=== PATIENT | female | born 1940 | race African-American/Black ===

== ENCOUNTER 2025-09-27 14:54 | Inpatient (IN) | payer OTHER ==
[~2025-09-27] VITALS: Ht 160 cm; Wt 59.8 kg
[2025-09-27] MEDS: VANCOMYCIN 1GM/250ML IV ONE (00:30)
[2025-09-27] MEDS: HEPARIN SODIUM (PORCINE) 5000 UNITS/ML 1ML VIAL SC SCH (00:30)
[2025-09-27] MEDS: CEFEPIME 1GM/50ML 50 ML IV STA (02:30)
[2025-09-27 15:30] VITALS: PULSE 118; RESP 16; O2SAT 95
--- NOTE | 2025-09-27 16:11 | ED.PDOC ---
History of Present Illness HPI Comments 85-year-old female presents via EMS after being found down for multiple days at home. Family was concerned they had heard from patient and called to do a wellness check. found patient unconscious on the ground next to her . Patient is altered and can not verbalize any other complaints Chief Complaint: Failure to Thrive Time Seen by MD: 15:50 Primary Care Provider: heritage Allergies: Coded Allergies: Codeine (Verified Allergy, Unknown, 10/30/14) Penicillins (Verified Allergy, Unknown, 09/29/25) Mode of Arrival: EMS Past Medical History PAST MEDICAL HISTORY: HTN Surgical History: Appendectomy, , Hysterectomy BUSINESS CENTER MANAGER History: No Pertinent BUSINESS CENTER MANAGER History Family History Family History: No family hx of Cancer, No family hx of DM, No family hx of HTN Family History (Other): thyroid Social History Smoker: Non-Smoker Alcohol: Denies ETOH Use Drugs: Denies Drug Use Lives In: Home Physical Exam General Appearance: Moderate Distress HEENT: Pharynx Normal Neck: Normal Inspection Respiratory: No Respiratory Distress Cardiovascular: No Edema Breast Exam: Deferred Gastrointestinal: No Organomegaly Genitalia: Deferred Pelvic: Deferred Rectal: Deferred Extremities: No pedal edema Neurologic: Disoriented, No Motor Deficits Cerebellar Function: NOT DONE Reflexes: NOT DONE Skin: Normal Color Lymphatic: NOT DONE Was a procedure done? 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: Attending Physician Indication: Hypotension, Inability to obtain IV Room prepared for procedure: Yes Health Promotion Coordinator performed hand hygien: Yes Maximal sterile barrier precau: Mask/Eye shield, Sterile gown, Cap, Sterlie gloves, Large sterlie drape Skin Preparation: Chlorhexidine gluconate, Providine iodine, Alcohol Skin preparation completely dr: Yes Insertion site: Left, Internal jugular Central line catheter type: [id number] dialysis Number of lumens: 3 Central line exchanged over a: Yes Antiseptic ointment applied to: Yes Post Assessment: Chest X-Ray, Proper placement Informed consent obtained: Yes Risks/benefits/alt described: Yes Differential Dx Considerations may include: ACS, CVA, viral syndrome, intracranial abnormality, dehydration, rhabdomyolysis X-Ray, Labs, Meds, VS Vital Signs Date Time Temp Pulse Resp B/P (MAP) Pulse Ox O2 Delivery O2 Flow Rate FiO2 09/27/25 21:00 90 16 156/95 (115) 100 09/27/25 20:24 44 09/27/25 20:00 92 17 150/93 (112) 100 09/27/25 19:00 89 12 171/81 09/27/25 18:31 77 13 147/86 09/27/25 18:00 128 21 147/86 (106) 100 09/27/25 17:10 111 12 157/103 (121) 99 09/27/25 16:00 97.8 114 18 154/109 (124) 91 97.8 09/27/25 15:30 118 16 95 Room Air* 0 21 09/27/25 15:12 115 09/27/25 15:06 98.0 135 24 161/47 94 98.0 Lab Test 09/27/25 21:25 09/27/25 19:45 09/27/25 18:41 09/27/25 17:29 Range/Units Ammonia < 10 L 11-32 umol/L Creatine Kinase 114 34-145 U/L Magnesium Level 2.5 1.6-2.6 mg/dL Troponin I High Sensitivity 611 *H 702 *H </=34 ng/L Lactic Acid Level 2.4 *H 0.4-2.0 mmol/L Thyroid Stimulating Hormone (TSH) 0.51 L 0.55-4.78 uIU/mL Test 09/27/25 17:10 09/27/25 16:31 09/27/25 15:39 Range/Units Urine Color Light-orange Yellow Urine Clarity Turbid H Clear Urine pH 5.5 5.0-9.0 Urine Specific [place] 1.022 1.001-1.035 Urine Protein 1+ H Negative Urine Ketones Trace Negative Urine Blood 3+ H Negative /uL Urine Nitrite Negative Negative Urine Bilirubin Negative Negative Urine Urobilinogen 2 H Negative mg/dL Urine Leukocyte Esterase 2+ Negative /uL Urine RBC 94 0 - 4 /hpf Urine Microscopic WBC 43 H 0-5 /HPF Urine Squamous Epithelial Cells Mod <5 /hpf Urine Amorphous Crystals Few None Seen /hpf Urine Bacteria Few H None Seen /hpf Urine Cellular Casts Few 0 /hpf Urine Hyaline Casts Many 0 - 2 /lpf Urine Granular Casts Few 0 /lpf Urine Mucus Few None Seen Urine Creatinine 267.15 H 30.0-125.0 mg/dL Urine Microalbumin 118.0 H <30.0 mg/L Urine Protein/Creatinine Ratio 0.46 Urine Sodium < 10 L 40-220 mmol/L Urine Glucose Normal Normal mg/dL Urine Total Protein 122.3 H 1-14 mg/dL Urine Opiates Screen Neg NEGATIVE Urine Fentanyl Screen Neg NEGATIVE Urine Barbiturates Screen Neg NEGATIVE Urine Phencyclidine Screen Neg NEGATIVE Urine Amphetamines Screen Neg NEGATIVE Urine Benzodiazepines Screen Neg NEGATIVE Urine Cocaine Screen Neg NEGATIVE Urine Cannabinoids Screen Pos NEGATIVE White Blood Count 9.2 4.4-10.8 10^3/uL Red Blood Count 5.31 H 4.0-5.20 10^6/uL Hemoglobin 15.7 12.2-16.2 g/dL Hematocrit 46.6 H 36.0-46.0 % Mean Corpuscular Volume 87.8 80.0-100.0 fL Mean Corpuscular Hemoglobin 29.6 28.0-32.0 pg Mean Corpuscular Hemoglobin Concent 33.7 32.0-36.0 g/dL Red Cell Distribution Width 17.9 H 11.8-14.3 % Platelet Count 326 140-450 10^3/uL Mean Platelet Volume 8.9 6.9-10.8 fL Neutrophils (%) (Auto) 89.5 H 37.0-80.0 % Lymphocytes (%) (Auto) 6.9 L 10.0-50.0 % Monocytes (%) (Auto) 3.5 0.0-12.0 % Eosinophils (%) (Auto) 0.0 0.0-7.0 % Basophils (%) (Auto) 0.1 0.0-2.0 % Neutrophils # (Auto) 8.2 1.6-8.6 10 ^3/uL Lymphocytes # (Auto) 0.6 0.4-5.4 10 ^3/uL Monocytes # (Auto) 0.3 0-1.3 10 ^3/uL Eosinophils # (Auto) 0 0-0.8 10 ^3/uL Basophils # (Auto) 0 0-0.2 10 ^3/uL Nucleated Red Blood Cells 0.1 % Sodium Level 143 136-145 mmol/L Potassium Level 2.7 L 3.5-5.1 mmol/L Chloride Level 97 L 98-107 mmol/L Carbon Dioxide Level 28 20-31 mmol/L Anion Gap 18 H 5-15 Blood Urea Nitrogen 45 H 9-23 mg/dL Creatinine 2.16 H 0.550-1.02 mg/dL Glomerular Filtration Rate Calc 22 >90 mL/min BUN/Creatinine Ratio 20.8 H 10.0-20.0 Serum Glucose 109 H 74-106 mg/dL Lactic Acid Level 2.3 *H 0.4-2.0 mmol/L Calcium Level 11.1 H 8.7-10.4 mg/dL Total Bilirubin 1.4 H 0.2-1.0 mg/dL Aspartate Amino Transferase (AST) 47 H 13-40 U/L Alanine Aminotransferase (ALT) 23 7-40 U/L Alkaline Phosphatase 114 46-116 U/L Creatine Kinase 147 H 34-145 U/L Troponin I High Sensitivity 708 *H </=34 ng/L B-Type Natriuretic Peptide 62.41 0-100 pg/mL Total Protein 8.7 H 5.7-8.2 g/dL Albumin 4.8 3.2-4.8 g/dL POC Glucose 130 H 70-106 mg/dl Microbiology Date/Time Source Procedure Growth Status 09/27/25 17:29 Blood Blood Culture - Preliminary NO GROWTH AFTER 72 HOURS OF INCUBATION. Resulted 09/27/25 17:10 Voided Urine Urine Culture - Final Complete 09/27/25 16:31 Blood Blood Culture - Preliminary NO GROWTH AFTER 72 HOURS OF INCUBATION. Resulted Time of 1ST Reevaluation: 18:30 (Sign out received from Dr. Adhikari. Pending admission) Reevaluation 1ST: Improved Patient Education/Counseling: Pt Unresponsive Family Education/Counseling: No Family Present SEPSIS Sepsis Screen Date sepsis recognized/suspect: Sep 27, 2025 Time Sepsis recognized/suspect: 1506 Recent Procedure: No On Antibiotic Therapy: No Respiratory Rate >20: Yes Heart Rate >90: Yes Temp<36 C (96.8 F) or >38.3 C: No SBP <90 or MAP <65 mmHG: No New Acute Mental Status Change: No Is the patient on CPAP, BIPAP,: No Physician Orders Electrocardigram (09/27/25 15:32) Blood Culture (09/27/25 16:09) Chest Portable (09/27/25 16:09) Head Without Contrast (09/27/25 16:09) Accucheck (09/27/25 18:00) Notify Md If Map <65 Or Bp<90 (09/27/25 18:00) If Map<65 Start Vasopressor (09/27/25 18:00) Sepsis Reassesment After Fluid (09/27/25 19:00) Ct Ab Pel Wo Con-No Oral Or Iv (09/27/25 17:59) Strict I & O QSHIFT (09/27/25 21:05) Ondansetron Hcl (Zofran) (09/27/25 21:15) Fall Risk Precautions In Place QSHIFT (09/27/25 21:05) Heparin Sodium (Porcine) (09/27/25 22:00) Docusate Sodium Capsule (Colace Capsule) (09/27/25 21:15) Albuterol Medneb (Ventolin Medneb) (09/27/25 21:15) Strict Aspiration Precautions (09/27/25 21:29) *Consult Dr.Mukeshchandra Carballo (09/27/25 21:29) Aspirin Enteric Coated Tablet (Ecotrin E (09/28/25 10:00) Atorvastatin (Lipitor) (09/27/25 22:00) Pt Request For Service (09/27/25 21:29) Vital Signs Date Time Temp Pulse Resp B/P (MAP) Pulse Ox O2 Delivery O2 Flow Rate FiO2 09/27/25 21:00 90 16 156/95 (115) 100 09/27/25 20:24 44 09/27/25 20:00 92 17 150/93 (112) 100 09/27/25 19:00 89 12 171/81 09/27/25 18:31 77 13 147/86 09/27/25 18:00 128 21 147/86 (106) 100 09/27/25 17:10 111 12 157/103 (121) 99 09/27/25 16:00 97.8 114 18 154/109 (124) 91 97.8 09/27/25 15:30 118 16 95 Room Air* 0 21 09/27/25 15:12 115 09/27/25 15:06 98.0 135 24 161/47 94 98.0 Laboratory Tests Test 09/27/25 16:31 09/27/25 18:41 Lactic Acid Level 2.3 mmol/L (0.4-2.0) *H 2.4 mmol/L (0.4-2.0) *H White Blood Count 9.2 10^3/uL (4.4-10.8) Departure 1 Departure Time of Disposition: 18:30 Impression: Primary Impression: MONIK (acute kidney injury) Additional Impressions: Metabolic encephalopathy Elevated troponin Hypokalemia UTI (urinary tract infection) Disposition: ADMITTED INPATIENT Condition: Guarded Critical Care Note Critical Care Time?: Yes Critical care comment: Altered mental Authorized and Performed by: Gracie Adhikari MD Total critical care time: Approximately 124 minutes Due to a high probability of clinically significant, life threatening deterioration, the patient required my highest level of preparedness to intervene emergently and I personally spent this critical care time directly and personally managing the patient. This critical care time included obtaining a history; examining the patient; pulse oximetry; ordering and review of studies; arranging urgent treatment with development of a management plan; evaluation of patient's response to treatment; frequent reassessment; and, discussions with other providers. This critical care time was performed to assess and manage the high probability of imminent, life-threatening deterioration that could result in multi-organ failure. It was exclusive of separately billable procedures and treating other patients and teaching time. Please see my other sections and the rest of the note for further information on patient assessment and treatment. Stability Stability form required: No I personally scribed for GRACIE ADHIKARI MD ([email or web address]) on 09/27/25 at 23:39. Electronically submitted by Tiera Posey ([email or web address]). GRACIE ADHIKARI MD Sep 27, 2025 16:11 JAYNA JESUS MD Sep 28, 2025 00:49
[2025-09-27 16:51] LABS: Hematocrit 46.6 % (36.0-46.0); Hemoglobin 15.7 g/dL (12.2-16.2); Mean Corpuscular Hemoglobin 29.6 pg (28.0-32.0); Mean Corpuscular Volume 87.8 fL (80.0-100.0); Nucleated Red Blood Cells % 0.1 %
[2025-09-27 17:06] LABS: Albumin 4.8 g/dL (3.2-4.8); Alkaline Phosphatase 114 U/L (46-116); Anion Gap 18 (5-15); BUN/Creatinine Ratio 20.8 (10.0-20.0); Blood Urea Nitrogen 45 mg/dL (9-23); Calcium 11.1 mg/dL (8.7-10.4); Carbon Dioxide 28 mmol/L (20-31); Chloride 97 mmol/L (98-107); Creatine Kinase IFCC 147 U/L (34-145); Glucose 109 mg/dL (74-106); Potassium 2.7 mmol/L (3.5-5.1); Sodium 143 mmol/L (136-145); Total Protein 8.7 g/dL (5.7-8.2)
[2025-09-27 17:07] LABS: Bilirubin, Total 1.4 mg/dL (0.2-1.0)
[2025-09-27 17:09] LABS: Lactic Acid w/Reflex 2.3 mmol/L (0.4-2.0)
[2025-09-27 17:23] LABS: Urine Amorphous Crystal FEW /hpf (None Seen); Urine Protein, UAD 1+ (Negative)
--- NOTE | 2025-09-27 17:42 | ECG ---
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
[2025-09-27] MEDS: SODIUM CHLORIDE 0.9% 1,000 ML IV ONE ×3 (17:45→23:35)
[2025-09-27 17:46] LABS: Alanine Aminotransferase 23 U/L (7-40)
[2025-09-27] MEDS: ONDANSETRON HCL 4 MG/2 ML VIAL IV ONE (18:30)
[2025-09-27] MEDS: MORPHINE SULFATE 4 MG/ML SYR/VIAL IV ONE (18:31)
--- NOTE | 2025-09-27 18:46 | DVH ---
EXAM: CT HEAD WITHOUT CONTRAST INDICATION: found down TECHNIQUE: CT images of the head were obtained without administration of IV contrast. CT scans at this facility use dose modulation, iterative reconstruction, and/or weight based dosing when appropriate to reduce radiation dose to as low as reasonably achievable. COMPARISON: None FINDINGS: PARENCHYMA: No acute hemorrhage. There is no mass effect, midline shift, or herniation. There is preservation of the garcia white differentiation. Severe scattered hypoattenuation along the periventricular, centrum semiovale, and deep white matter tracts, which are nonspecific however statistically most likely represent chronic microvascular ischemic change. VENTRICLES: No hydrocephalus. EXTRA-AXIAL SPACES: No extra-axial fluid collections. OTHER: The bony structures are intact. Visualized portions of the paranasal sinuses and mastoid air cells are clear. IMPRESSION: 1. No CT evidence of an acute intracranial abnormality.
--- NOTE | 2025-09-27 18:50 | DVH ---
Indication: abd pain Technique: CT axial images of the abdomen and pelvis are obtained without contrast. Coronal and sagittal reformats were obtained. Radiation Dose Information: CTDI volume is 5.4 mGy. Dose-length product is 1715 mGy*cm Comparison: None FINDINGS: There is limited interpretation of the abdomen and pelvis without administration of intravenous contrast. Examination degraded by motion. Lung bases demonstrate no pleural effusion. Coronary artery calcification disease. Aortic atherosclerotic disease. Adrenal glands, spleen, pancreas, liver unremarkable in shape. Gallbladder not well visualized/contracted. Kidneys demonstratem no hydronephrosis. Nonobstructing calculi up to 8 mm. Nonobstructing left renal calculi up to 13 mm. Left renal cyst measuring 2.3 cm. Stomach partially distended. Small bowel loops are normal in caliber. Moderate volume stool throughout the colon. No secondary signs for appendicitis. Abdominal aortic atherosclerotic disease. Bladder is decompressed by Martinez catheter. No inguinal lymphadenopathy. Overall limited evaluation of the pelvis secondary to hip arthroplasty hardware results in extensive beam hardening artifact. [id number]-[id number] bilateral sacroiliac degenerative joint disease. Moderate to advanced thoracolumbar degenerative disc disease. IMPRESSION: Limited evaluation without contrast. Limited examination due to motion artifact as well as beam hardening artifact. Nonobstructing bilateral renal calculi. Moderate volume stool in the colon. Atherosclerotic disease. Other findings as described.
--- NOTE | 2025-09-27 18:59 | DVH ---
CHEST RADIOGRAPH Indication: found down Technique: Single frontal view of the chest was obtained Comparison: None FINDINGS: Lines and Tubes: None Lungs: No focal consolidation. Pleura: No effusion. No pneumothorax. Cardiomediastinal contours: Unremarkable Bones: No acute osseous abnormality. IMPRESSION: 1. No acute cardiopulmonary disease.
[2025-09-27] MEDS: LACTATED RINGER'S 1,550 ML IV ONE (19:50)
[2025-09-27] MEDS ORDERED: POTASSIUM CHL 20MEQ/100ML 100 ML IV SCH (20:15)
[2025-09-27] MEDS ORDERED: ONDANSETRON HCL 4 MG/2 ML VIAL IV PRN (21:15)
[2025-09-27] MEDS ORDERED: ALBUTEROL SULF 2.5 MG/0.5ML(0.5%) NEB SOLN NEB PRN (21:15)
[2025-09-27] MEDS ORDERED: NITROGLYCERIN 0.4 MG SL TAB SL PRN (21:45)
[2025-09-27] MEDS: SODIUM CHLORIDE 0.9% 1,000 ML IV SCH (22:12)
[2025-09-27] MEDS: POTASSIUM CHL 20MEQ/100ML 100 ML IV SCH (22:12)
[2025-09-27] MEDS: NOREPINEPHRINE 8 MG/250ML KIT 250 ML IV SCH (23:00)
[2025-09-27] MEDS: NOREPINEPHRINE 8 MG/250ML KIT 250 ML IV ONE (23:24)
[2025-09-27] MEDS: ATORVASTATIN 20 MG TAB PO SCH (23:26)
[2025-09-27] MEDS: ASPirin-EC 325mg tab PO ONE (23:26)
[2025-09-27] MEDS ORDERED: VANCOMYCIN PER PHARMACY 0 MG IV SCH (23:30)
[2025-09-27 23:50] VITALS: BP 164/102; PULSE 86; RESP 16; TEMP 97.8; O2SAT 100
--- NOTE | 2025-09-27 23:58 | DVH ---
Exam: US CHEST ULTRASOUND Clinical History: -superficial upper chest possible melanoma Comparison: None Technique: Targeted sonographic evaluation of the soft tissues of the anterior midline chest was obtained utilizing grayscale and color Doppler imaging. Findings: Superficial, heterogeneously hypoechoic mass tenting the skin surface measuring 1.6 x 0.7 x 1.8 cm. No detectable internal color Doppler flow. Posterior acoustic shadowing without surrounding hyperemia or edema. Impression: Suspicious superficial subcutaneous 1.8 cm mass in the anterior chest. This mass is incompletely characterized sonographically, and further clinical workup is required which may include tissue sampling.
[2025-09-28] VITALS (72 sets, daily range): BP systolic 95–178; BP diastolic 52–103; PULSE 73–94; RESP 7–25; TEMP 96.5–99; O2SAT 99–100
--- NOTE | 2025-09-28 00:01 | DVHINCON2 ---
Date of service: Sep 27, 2025 Referring Physician Ashly Reason for Consultation Elevated troponin History of Present Illness This is an 85-year-old female with a PMH of HTN who was brought in by EMS after being found down on the ground at home over the last several days. The patient's family became concerned they had not heard from or had any contact with the patient and therefore the patient's family called the [facility]'s department to conduct a wellness check. Per supervisory cbp officer they entered the patient's residence and found patient unconscious on the ground next to her . Patient is altered and can not verbalize any complaints. CBC is WNL. 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 Troponin 708 > 702. Chest x-ray showed NAD. EKG showed tachycardia at 115. Patient was admitted to the hospital. I am asked to consult on this patient. Allergies: Coded Allergies: Codeine (Verified Allergy, Unknown, 10/30/14) Uncoded Allergies: PENICILLIN (Allergy, Unknown, 10/30/14) Current Medications Current Medications Medications (Trade) Dose Ordered Sig/K[place] Route PRN Reason Start Time Stop Time Status Last Admin Cefepime HCl 50 ml @ 12.5 mls/hr ONCE STAT IV 09/27/25 18:00 09/27/25 21:59 DC Potassium Chloride 100 ml @ 50 mls/hr Q2H IV 09/27/25 20:15 09/27/25 22:03 DC Cefepime HCl 50 ml @ 50 mls/hr Q24H IV 09/28/25 18:00 Ondansetron HCl (Zofran) 4 mg Q6HPRN PRN IV NAUSEA / VOMITING 09/27/25 21:15 Hold Heparin Sodium (Porcine) 5,000 units Q12HR SC 09/27/25 22:00 Docusate Sodium (Colace Capsule) 100 mg BIDPRN PRN PO FOR CONSTIPATION 09/27/25 21:15 Albuterol (Ventolin Medneb) 2.5 mg Q4HPRN PRN NEB SHORTNESS OF BREATH 09/27/25 21:15 Sodium Chloride 1,000 ml @ 150 mls/hr Q6H40M IV 09/27/25 21:15 Aspirin (Ecotrin Enteric Coated Tablet) 81 mg DAILY PO 09/28/25 10:00 Atorvastatin Calcium (Lipitor) 40 mg HS PO 09/27/25 22:00 Nitroglycerin (Ntrostat Sublingual) 0.4 mg Q5MINP PRN SL FOR CHEST PAIN 09/27/25 21:45 Potassium Chloride 100 ml @ 50 mls/hr Q2H IV 09/27/25 21:45 09/28/25 01:44 09/27/25 22:12 Review of Systems Unable to review: Patient is altered Vital Signs Vital Signs Date Time Temp Pulse Resp B/P (MAP) Pulse Ox O2 Delivery O2 Flow Rate FiO2 09/27/25 21:00 90 16 156/95 (115) 100 09/27/25 16:00 97.8 97.8 09/27/25 15:30 Room Air* 0 21 Physical Exam GENERAL: Altered. EYES: PERRL, EOMI. Anicteric. HENT: Moist mucous membranes. LUNGS: Clear to auscultation bilaterally. CARDIOVASCULAR: Regular rate and rhythm. ABDOMEN: Soft, nontender and nondistended. EXTREMITIES: No edema. SKIN: Warm, dry. Labs/Diagnostic Data Labs Test 09/27/25 21:25 09/27/25 19:45 09/27/25 18:41 09/27/25 17:29 Range/Units Ammonia < 10 L 11-32 umol/L Creatine Kinase 114 34-145 U/L Magnesium Level 2.5 1.6-2.6 mg/dL Troponin I High Sensitivity 611 *H </=34 ng/L Lactic Acid Level 2.4 *H 0.4-2.0 mmol/L Thyroid Stimulating Hormone (TSH) 0.51 L 0.55-4.78 uIU/mL Test 09/27/25 17:10 09/27/25 16:31 09/27/25 15:39 Range/Units Urine Color Light-orange Yellow Urine Clarity Turbid H Clear Urine pH 5.5 5.0-9.0 Urine Specific [place] 1.022 1.001-1.035 Urine Protein 1+ H Negative Urine Ketones Trace Negative Urine Blood 3+ H Negative /uL Urine Nitrite Negative Negative Urine Bilirubin Negative Negative Urine Urobilinogen 2 H Negative mg/dL Urine Leukocyte Esterase 2+ Negative /uL Urine RBC 94 0 - 4 /hpf Urine Microscopic WBC 43 H 0-5 /HPF Urine Squamous Epithelial Cells Mod <5 /hpf Urine Amorphous Crystals Few None Seen /hpf Urine Bacteria Few H None Seen /hpf Urine Cellular Casts Few 0 /hpf Urine Hyaline Casts Many 0 - 2 /lpf Urine Granular Casts Few 0 /lpf Urine Mucus Few None Seen Urine Glucose Normal Normal mg/dL White Blood Count 9.2 4.4-10.8 10^3/uL Red Blood Count 5.31 H 4.0-5.20 10^6/uL Hemoglobin 15.7 12.2-16.2 g/dL Hematocrit 46.6 H 36.0-46.0 % Mean Corpuscular Volume 87.8 80.0-100.0 fL Mean Corpuscular Hemoglobin 29.6 28.0-32.0 pg Mean Corpuscular Hemoglobin Concent 33.7 32.0-36.0 g/dL Red Cell Distribution Width 17.9 H 11.8-14.3 % Platelet Count 326 140-450 10^3/uL Mean Platelet Volume 8.9 6.9-10.8 fL Neutrophils (%) (Auto) 89.5 H 37.0-80.0 % Lymphocytes (%) (Auto) 6.9 L 10.0-50.0 % Monocytes (%) (Auto) 3.5 0.0-12.0 % Eosinophils (%) (Auto) 0.0 0.0-7.0 % Basophils (%) (Auto) 0.1 0.0-2.0 % Neutrophils # (Auto) 8.2 1.6-8.6 10 ^3/uL Lymphocytes # (Auto) 0.6 0.4-5.4 10 ^3/uL Monocytes # (Auto) 0.3 0-1.3 10 ^3/uL Eosinophils # (Auto) 0 0-0.8 10 ^3/uL Basophils # (Auto) 0 0-0.2 10 ^3/uL Nucleated Red Blood Cells 0.1 % Sodium Level 143 136-145 mmol/L Potassium Level 2.7 L 3.5-5.1 mmol/L Chloride Level 97 L 98-107 mmol/L Carbon Dioxide Level 28 20-31 mmol/L Anion Gap 18 H 5-15 Blood Urea Nitrogen 45 H 9-23 mg/dL Creatinine 2.16 H 0.550-1.02 mg/dL Glomerular Filtration Rate Calc 22 >90 mL/min BUN/Creatinine Ratio 20.8 H 10.0-20.0 Serum Glucose 109 H 74-106 mg/dL Calcium Level 11.1 H 8.7-10.4 mg/dL Total Bilirubin 1.4 H 0.2-1.0 mg/dL Aspartate Amino Transferase (AST) 47 H 13-40 U/L Alanine Aminotransferase (ALT) 23 7-40 U/L Alkaline Phosphatase 114 46-116 U/L B-Type Natriuretic Peptide 62.41 0-100 pg/mL Total Protein 8.7 H 5.7-8.2 g/dL Albumin 4.8 3.2-4.8 g/dL POC Glucose 130 H 70-106 mg/dl Assessment Toxic metabolic encephalopathy. Elevated troponin. MONIK. UTI. Hypokalemia. Dehydration. HTN. Plan/Recommendation I agree with your ongoing assessment and care of plan. Echocardiogram. Aspirin, Lipitor. IV antibiotics as ordered. Nitro SL. Vasopressors for hemodynamic support. Additional plan as per the hospital course. Critical care time of 90 minutes provided to include time spent evaluation of patient at bedside, when appropriate patient/family education for diagnosis, treatment plan, review of pertinent medical information and discussion of care with specialty providers and PCP. Plan discussed with: Other TALITA CRAWFORD MD Sep 27, 2025 23:01
--- NOTE | 2025-09-28 01:59 | DVHHP ---
ADMIT DATE: 09/27/2025 CHIEF COMPLAINT: Found down at home with altered mental status. HISTORY OF PRESENT ILLNESS: An 85-year-old female, with significant past medical history for essential hypertension, hyperlipidemia and dementia, who apparently was found down at home by her , who was ____ at her site. The patient's family was concerned after not hearing from her. Last well seen was about 3 days ago. The patient's family apparently called the [facility]'s Department for a wellness check and that is when the patient was found and was brought in with altered mental status and initially noncommunicative. During my assessment, patient was alert to self and to place, but not to exact location or time or situation, has no recollection of the events that occurred prior to arriving here. The patient seems to be still slow to respond. She denies any chest pain or shortness of breath, but currently using about 2-3 liters of oxygen, satting at about 99%. She denies any fevers or chills. Says she might have some suprapubic lower abdominal pain, but the area seems to be soft, nontender. There is no guarding. The patient denies any bloody or tarry stools, but again history seems to be very limited as patient is again slow to respond and does not recollect what has led to her hospitalization at this time. PAST MEDICAL HISTORY: Hypertension, hyperlipidemia, dementia. PAST SURGICAL HISTORY: Had bilateral knee surgeries. SOCIAL HISTORY: Denies any tobacco, alcohol or illicit drugs. MEDICATIONS AT HOME: To include losartan 100 mg a day, atorvastatin 10 mg a day, amlodipine 10 mg a day, hydrochlorothiazide, clopidogrel 75 once a day, anastrozole 1 mg once a day. MEDICATION ALLERGIES: PENICILLIN. REVIEW OF SYSTEMS: Limited due to the patient's current alteration in mental status and no recollection of what happened the last few days. The patient again is denying any form of chest pain or shortness of breath, cough or phlegm. Does seem to have a slight abdominal pain. She does not remember having any fevers or chills either. PHYSICAL EXAMINATION: VITAL SIGNS: Temperature 98, pulse rate initially at 135, respiratory rate of 24, blood pressure 161/47 with a pulse ox of about 94%. GENERAL: Seems to be alert and oriented to self and to hospital, not to time or situation, not in acute distress, -[place] female laying in bed. HEENT: Normocephalic, atraumatic. Extraocular muscles were intact. Pupils were equally round and react to light and accommodations. Mucous membranes seems to be significantly dry. CARDIOVASCULAR: S1, S2 positive. Regular rate and rhythm. No rubs, gallops or murmurs. LUNGS: Seemed to be clear to auscultation bilaterally. No wheezing, rhonchi or rales. ABDOMEN: Seems to be soft, nontender, nondistended. Positive bowel sounds. No guarding. No rebound. EXTREMITIES: Lower extremities: She has dry, scaly skin, bilateral feet, ascending up her legs. There is no edema, no clubbing, no cyanosis. NEUROLOGIC: No focal deficits on examination. MUSCULOSKELETAL: The patient has about 4/5 power in bilateral upper and lower extremities. Cranial nerve testing 2-12 overall seems to be intact. LABORATORY WORKUP: Showed a white count of 9.2, H and H of 15.7/46.6, platelet count of 326,000. There is an 89.5% neutrophil shift. The patient's sodium of 143, potassium 2.7, chloride 97, carbon dioxide of 28, anion gap of 18. BUN of 45, creatinine 2.16. Estimated GFR of 22. Glucose of 130. Lactic acid of 2.4, down to 2.3. Magnesium 2.5. AST of 47, ALT of 23, alkaline phos of 114. Ammonia of less than 10. Creatine kinase of 147, down to 114. Troponins initially of 708, down to 702, down to 611. NT-proBNP of 62.41. TSH of 0.51. Urinalysis was nitrites negative, 2+ leukocyte esterase, rbc's of 94, wbc's of 43. Blood cultures were sent out. IMAGING: Chest x-ray shows no acute cardiopulmonary disease process. Head CT shows no acute intracranial abnormality. Abdomen and pelvis CT limited evaluation without contrast, limited examination due to motion artifact as well as beam hardening artifact, non-obstructive bilateral renal calculi, moderate volume stool in the colon, atherosclerotic disease. EKG shows sinus tachycardia with multiple premature complexes. LVH with intraventricular conduction delay, left axis deviation and repolarization abnormality. Prolonged QT interval at 383 with a QTc of 530, ventricular rate of 115. DIAGNOSES: * Sepsis. * Toxic metabolic encephalopathy. * Elevated troponins, likely demand related. * Acute kidney injury. * Generalized weakness. * UTI. * Hypokalemia. * Dehydration. * Constipation. PLAN: The patient was initially ordered to be admitted to telemetry floor, was upgraded to ICU as patient became unresponsive after admission. The patient's blood pressure was detected to be low despite getting multiple bolus IV fluids on arrival to the ER and was initiated on cefepime initially by the ED due to concern for sepsis. The patient will be again transitioned to ICU. The patient has been ordered to be given another liter of normal saline bolus. The patient is currently on cefepime 2 grams IV q. 12h. The patient has also been ordered 1 gram of vancomycin to be given now and to be dose adjusted by pharmacy. The patient will be ordered a consultation with Dr. Alfredo Alvarez, Cardiology. Echocardiogram to be completed in the morning. The patient's elevated cardiac enzymes likely induced by patient's sepsis physiology. Additionally, patient's toxic metabolic encephalopathy induced again from underlying infection, which is being treated with IV antibiotics. The patient to have a consultation with Dr. Woodruff, Neurology. Ammonia levels seems to be normal. The patient does have a slightly reduced TSH level, which I will order a total T3 and free T4 to further assess. The patient has been ordered Levophed to maintain MAPs above 65. The patient to be continued on IV fluids with NS about 150 mL an hour. Strict I's and O's to be implemented. Martinez catheter is in place. Martinez catheter care will be ordered for the patient. The patient to have Zofran 4 mg IV p.r.n. q. 6h. for nausea and vomiting. The patient to have repeat blood work in the morning with CBC, BMP. The patient to also have consultation with Nephrology due to her acute kidney injury, likely due to vasomotor nephropathy. The patient, again has been initiated on IV fluids. We will continue to monitor patient's urinary output and daily renal functions. The patient also received 40 mEq of potassium IV. We will replete as needed potassium and reorder potassium repeat an hour after completing her IV replacement. The patient will be placed on aspiration precautions and fall precautions. The patient will be ordered heparin 5000 subcutaneous b.i.d. for DVT prophylaxis. Per family's request, patient is a full code per nursing staff, who spoke with the patient prior to me arriving, who were not present during my assessment. The patient otherwise seems to be in critical condition, and again will be admitted to the ICU for continuous cardiopulmonary monitoring. We will await further consultants' recommendations. Further recommendations will depend on patient's hospital progression. Lul Reyes MD LM/BERNARD/HEMANTH TID: [id number] RECEIPT: [id number] MTDD
[2025-09-28 03:55] LABS: Base Excess 2.7 mmol/L (-2.0-3.0)
--- NOTE | 2025-09-28 05:09 | DVH ---
CHEST RADIOGRAPH Indication: CENTRAL LINE PLACEMENT Technique: Single frontal view of the chest was obtained COMPARISON: XY CHEST PORTABLE on DOS: 09/27/25 FINDINGS: Lines and Tubes: Left central venous catheter in satisfactory position. Lungs: Clear Pleura: No effusion.No pneumothorax. Cardiomediastinal contours: Cardiomegaly. Bones: Unremarkable IMPRESSION: Left central venous catheter in satisfactory position.
[2025-09-28 07:57] LABS: Hematocrit 30.3 % (36.0-46.0); Hemoglobin 10.0 g/dL (12.2-16.2); Mean Corpuscular Hemoglobin 29.0 pg (28.0-32.0); Mean Corpuscular Volume 88.0 fL (80.0-100.0); Nucleated Red Blood Cells % 0.1 %
[2025-09-28] MEDS: SODIUM CHLORIDE 0.9% 2,000 ML IV ONE (08:00)
[2025-09-28] MEDS: CEFEPIME 1GM/50ML 50 ML IV SCH (08:36)
[2025-09-28 09:10] LABS: Chloride 105 mmol/L (98-107); Sodium 145 mmol/L (136-145)
[2025-09-28 09:11] LABS: Anion Gap 11 (5-15); Carbon Dioxide 29 mmol/L (20-31)
[2025-09-28] MEDS ORDERED: PROCHLORPERAZINE EDISYLATE 5 MG/ML 2ML VIAL IV PRN (09:15)
[2025-09-28 09:16] LABS: BUN/Creatinine Ratio 34.4 (10.0-20.0); Glucose 105 mg/dL (74-106)
[2025-09-28 09:18] LABS: Blood Urea Nitrogen 45 mg/dL (9-23); Calcium 8.4 mg/dL (8.7-10.4); Potassium 2.7 mmol/L (3.5-5.1)
[2025-09-28] MEDS ORDERED: METOCLOPRAMIDE HCL 5MG/ml INJ 2ml VIAL IV PRN (09:30)
[2025-09-28] MEDS: POTASSIUM CHL 20MEQ/100ML 100 ML IV SCH (09:57)
[2025-09-28] MEDS: ASPirin-EC 81 mg tab PO SCH (10:00)
--- NOTE | 2025-09-28 10:26 | DVH ---
CLINICAL HISTORY: to rule out renal pathology TECHNIQUE: Complete ultrasound exam of the kidneys and bladder was performed. COMPARISON: None FINDINGS: The right kidney has normal echogenicity and measures 9.2 cm. There is a 1 cm stone. There is no focal parenchymal abnormality. There is no hydronephrosis. The left kidney has normal echogenicity and measures 9.3 cm. There is a 3.1 cm cyst. There is an 11 mm stone. The bladder is decompressed by Martinez. IMPRESSION: 1 cm right and 1.1 cm left renal stones. No hydronephrosis.
--- NOTE | 2025-09-28 11:31 | DVHCONRES ---
Date Seen: Sep 28, 2025 Resident Creating Document: EN PORTER RESIDENT Reason for Consultation MONIK History of Present Illness CRYSTAL DEWEY is a 85-year-old female, with significant PMH of HTN, hyperlipidemia and dementia, who apparently was found down at home by her . Patient's family was concerned after not hearing from her. Last well seen was about 3 days ago. The patient's family apparently called the [facility]'s Department for a wellness check and that is when the patient was found and was brought in with altered mental status and initially noncommunicative. During my assessment, patient was alert to self and to place, but not to exact location or time or situation, has no recollection of the events that occurred prior to arriving here. The patient seems to be still slow to respond. She denies any chest pain or shortness of breath, but currently using about 2-3 liters of oxygen, saturating at about 99%. She denies any fevers or chills. PAST MEDICAL HISTORY: Hypertension, hyperlipidemia, dementia. PAST SURGICAL HISTORY: Had bilateral knee surgeries. SOCIAL HISTORY: Denies any tobacco, alcohol or illicit drugs. MEDICATIONS AT HOME: To include losartan 100 mg a day, atorvastatin 10 mg a day, amlodipine 10 mg a day, hydrochlorothiazide, clopidogrel 75 once a day, anastrozole 1 mg once a day. MEDICATION ALLERGIES: PENICILLIN. Patient is seen and examined at the bedside. Unable to obtain complete ROS due to patient's clinical status but reported mild improvement in her symptoms since admission. Family History: Patient reports no known family medical history. Allergies: Coded Allergies: Codeine (Verified Allergy, Unknown, 10/30/14) Uncoded Allergies: PENICILLIN (Allergy, Unknown, 10/30/14) Current Medications Current Medications Medications (Trade) Dose Ordered Sig/Kusum Route PRN Reason Start Time Stop Time Status Last Admin Cefepime HCl 50 ml @ 12.5 mls/hr ONCE STAT IV 09/27/25 18:00 09/27/25 21:59 DC 09/27/25 02:30 Potassium Chloride 100 ml @ 50 mls/hr Q2H IV 09/27/25 20:15 09/27/25 22:03 DC Cefepime HCl 50 ml @ 50 mls/hr Q24H IV 09/28/25 18:00 09/28/25 07:27 DC Ondansetron HCl (Zofran) 4 mg Q6HPRN PRN IV NAUSEA / VOMITING 09/27/25 21:15 Hold Heparin Sodium (Porcine) 5,000 units Q12HR SC 09/27/25 22:00 09/27/25 00:30 Docusate Sodium (Colace Capsule) 100 mg BIDPRN PRN PO FOR CONSTIPATION 09/27/25 21:15 Albuterol (Ventolin Medneb) 2.5 mg Q4HPRN PRN NEB SHORTNESS OF BREATH 09/27/25 21:15 Sodium Chloride 1,000 ml @ 150 mls/hr Q6H40M IV 09/27/25 21:15 09/28/25 09:35 DC 09/28/25 04:02 Aspirin (Ecotrin Enteric Coated Tablet) 81 mg DAILY PO 09/28/25 10:00 Atorvastatin Calcium (Lipitor) 40 mg HS PO 09/27/25 22:00 Nitroglycerin (Ntrostat Sublingual) 0.4 mg Q5MINP PRN SL FOR CHEST PAIN 09/27/25 21:45 Potassium Chloride 100 ml @ 50 mls/hr Q2H IV 09/27/25 21:45 09/28/25 01:44 DC 09/28/25 00:30 Norepinephrine Bitartrate 250 ml @ 3.75 mls/hr Q24H IV 09/27/25 23:30 09/28/25 02:30 Vancomycin HCl 0 ml @ 0 mls/hr PER PHARMACY IV 09/27/25 23:30 Cefepime HCl 50 ml @ 50 mls/hr Q24H IV 09/28/25 07:30 09/28/25 08:36 Prochlorperazine Edisylate (Compazine Inj) 10 mg Q4HPRN PRN IV NAUSEA OR VOMITING 09/28/25 09:15 Metoclopramide HCl (Reglan Injection) 5 mg Q6HPRN PRN IV NAUSEA / VOMITING 09/28/25 09:30 Sodium Chloride 1,000 ml @ 100 mls/hr Q10H IV 09/28/25 09:30 Potassium Chloride 100 ml @ 50 mls/hr Q2H IV 09/28/25 09:30 09/28/25 15:29 09/28/25 09:57 Vital Signs Vital Signs Date Time Temp Pulse Resp B/P (MAP) Pulse Ox O2 Delivery O2 Flow Rate FiO2 09/28/25 07:30 20 100 Nasal Cannula* 2 28 09/28/25 06:30 97.2 88 97.2 09/28/25 06:15 134/72 (92) Physical Exam Skin - Patients skin is warm and dry. HEENT - normocephalic, atraumatic, moist mucous membranes, no pallor or icterus Pulmonary - B/L rales more in the lower lobes, decreased breath sounds in the left lower. cardiovascular - regular S1,S2 heard, S4 heard, no murmurs heard. GI - soft, nontender abdomen. Bowel sounds normoactive Extremities: Bilateral lower extremity edema Labs/Diagnostic Data Labs Test 09/28/25 07:28 09/28/25 03:44 09/27/25 21:25 09/27/25 19:45 Range/Units White Blood Count 8.1 4.4-10.8 10^3/uL Red Blood Count 3.45 L 4.0-5.20 10^6/uL Hemoglobin 10.0 #L 12.2-16.2 g/dL Hematocrit 30.3 #L 36.0-46.0 % Mean Corpuscular Volume 88.0 80.0-100.0 fL Mean Corpuscular Hemoglobin 29.0 28.0-32.0 pg Mean Corpuscular Hemoglobin Concent 32.9 32.0-36.0 g/dL Red Cell Distribution Width 17.6 H 11.8-14.3 % Platelet Count 242 140-450 10^3/uL Mean Platelet Volume 8.6 6.9-10.8 fL Neutrophils (%) (Auto) 86.6 H 37.0-80.0 % Lymphocytes (%) (Auto) 7.9 L 10.0-50.0 % Monocytes (%) (Auto) 5.5 0.0-12.0 % Eosinophils (%) (Auto) 0.0 0.0-7.0 % Basophils (%) (Auto) 0.0 0.0-2.0 % Neutrophils # (Auto) 7.0 1.6-8.6 10 ^3/uL Lymphocytes # (Auto) 0.6 0.4-5.4 10 ^3/uL Monocytes # (Auto) 0.4 0-1.3 10 ^3/uL Eosinophils # (Auto) 0 0-0.8 10 ^3/uL Basophils # (Auto) 0 0-0.2 10 ^3/uL Nucleated Red Blood Cells 0.1 % Sodium Level 145 136-145 mmol/L Potassium Level 2.7 L 3.5-5.1 mmol/L Chloride Level 105 98-107 mmol/L Carbon Dioxide Level 29 20-31 mmol/L Anion Gap 11 5-15 Blood Urea Nitrogen 45 H 9-23 mg/dL Creatinine 1.31 #H 0.550-1.02 mg/dL Glomerular Filtration Rate Calc 40 >90 mL/min BUN/Creatinine Ratio 34.4 H 10.0-20.0 Serum Glucose 105 74-106 mg/dL Calcium Level 8.4 L 8.7-10.4 mg/dL Phosphorus Level 2.9 2.4-5.1 mg/dL Parathyroid Hormone (Intact) 470.5 H 18.4-80.1 pg/mL Blood Gas Specimen Type Arterial Blood Gas Sample Site Left radial Blood Gas Patient Temperature 37.0 Arterial Blood Date Drawn [id number] Arterial Blood pH 7.438 7.350-7.450 Arterial Blood Partial Pressure CO2 41.0 32.0-45.0 mmHg Arterial Blood Partial Pressure O2 159.5 H 83.0-108.0 mmHg Arterial Blood HCO3 27.1 21.0-28.0 mmol/L Arterial Blood Oxygen Saturation 99.0 H 94.0-98.0 % Arterial Blood Base Excess 2.7 -2.0-3.0 mmol/L Arterial Blood Oxyhemoglobin 98.0 94.0-98.0 % Arterial Blood Carboxyhemoglobin 0.3 L 0.5-1.5 % Arterial Blood Methemoglobin 0.7 0.0-1.5 % Narendra Test Yes Blood Gas Total Hemoglobin 11.80 L 12.0-16.0 g/dL Blood Gas Modality Nasal cannula FiO2 % 28.0 Ammonia < 10 L 11-32 umol/L Creatine Kinase 114 34-145 U/L Magnesium Level 2.5 1.6-2.6 mg/dL Troponin I High Sensitivity 611 *H </=34 ng/L Test 09/27/25 18:41 09/27/25 17:29 09/27/25 17:10 09/27/25 16:31 Range/Units Lactic Acid Level 2.4 *H 0.4-2.0 mmol/L Thyroid Stimulating Hormone (TSH) 0.51 L 0.55-4.78 uIU/mL Urine Color Light-orange Yellow Urine Clarity Turbid H Clear Urine pH 5.5 5.0-9.0 Urine Specific Gates 1.022 1.001-1.035 Urine Protein 1+ H Negative Urine Ketones Trace Negative Urine Blood 3+ H Negative /uL Urine Nitrite Negative Negative Urine Bilirubin Negative Negative Urine Urobilinogen 2 H Negative mg/dL Urine Leukocyte Esterase 2+ Negative /uL Urine RBC 94 0 - 4 /hpf Urine Microscopic WBC 43 H 0-5 /HPF Urine Squamous Epithelial Cells Mod <5 /hpf Urine Amorphous Crystals Few None Seen /hpf Urine Bacteria Few H None Seen /hpf Urine Cellular Casts Few 0 /hpf Urine Hyaline Casts Many 0 - 2 /lpf Urine Granular Casts Few 0 /lpf Urine Mucus Few None Seen Urine Glucose Normal Normal mg/dL Total Bilirubin 1.4 H 0.2-1.0 mg/dL Aspartate Amino Transferase (AST) 47 H 13-40 U/L Alanine Aminotransferase (ALT) 23 7-40 U/L Alkaline Phosphatase 114 46-116 U/L B-Type Natriuretic Peptide 62.41 0-100 pg/mL Total Protein 8.7 H 5.7-8.2 g/dL Albumin 4.8 3.2-4.8 g/dL Test 09/27/25 15:39 Range/Units POC Glucose 130 H 70-106 mg/dl Assessment MONIK likely hemodynamically mediated unknown baseline Questionable sepsis Acute toxic/ metabolic encephalopathy NSTEMI likely type 2 Acute complicated cystitis Hypokalemia Recommendations Monitor lab Assess fluid status daily Renal ultrasound Ordered urine studies Blood pressure management Avoid nephrotoxic agents IV fluid will follow Rest of management as per primary team Case discussed with Dr. Lucio Plan discussed with: Patient ADDENDUM ADDENDUM discussed with resident MONIK hemodynamic due to near syncope hypotension septic shock suspected UTI kidney stones Agree with IVF syncope w/u replace potassium send urine studies EN PORTER RESIDENT Sep 28, 2025 11:31 FRANKLIN LUCIO MD Sep 28, 2025 14:13
[2025-09-28] MEDS: SOD CHL 0.45% 1,000 ML IV SCH (11:35)
[2025-09-28 13:22] LABS: Hematocrit 32.1 % (36.0-46.0); Hemoglobin 10.2 g/dL (12.2-16.2); Mean Corpuscular Hemoglobin 28.8 pg (28.0-32.0); Mean Corpuscular Volume 90.0 fL (80.0-100.0); Nucleated Red Blood Cells % 0.1 %
[2025-09-28 14:43] LABS: Protein, Urine 122.0 mg/dL (1-14)
[2025-09-28 15:10] LABS: Protein, Urine 122.3 mg/dL (1-14)
[2025-09-28 15:29] LABS: Amphetamine Screen, Urine Neg (NEGATIVE); Barbiturate Scree,Urine Neg (NEGATIVE); Benzodiazephine Screen, Urine Neg (NEGATIVE); Cannabinoid Screen, Urine Pos (NEGATIVE); Cocaine Screen, Urine Neg (NEGATIVE); Opiate Scree,Urine Neg (NEGATIVE); Phencyclidine Screen, Urine Neg (NEGATIVE)
[2025-09-28] MEDS ORDERED: CEFEPIME 1GM/50ML 50 ML IV SCH (18:00)
[2025-09-28 18:41] LABS: Potassium 3.6 mmol/L (3.5-5.1)
[2025-09-28 18:42] LABS: Carbon Dioxide 24 mmol/L (20-31)
[2025-09-28 18:47] LABS: BUN/Creatinine Ratio 31.0 (10.0-20.0); Glucose 85 mg/dL (74-106); Magnesium 1.6 mg/dL (1.6-2.6)
[2025-09-28 18:52] LABS: Blood Urea Nitrogen 35 mg/dL (9-23); Calcium 8.2 mg/dL (8.7-10.4)
[2025-09-28 18:56] LABS: Anion Gap 14 (5-15); Chloride 108 mmol/L (98-107); Sodium 146 mmol/L (136-145)
[2025-09-28] MEDS: VANCOMYCIN 500mg/100mL 100 ML IV ONE (20:00)
[2025-09-28] MEDS ORDERED: VANCOMYCIN 750MG KIT 100 ML IV ONE (20:00)
[2025-09-28] MEDS ORDERED: MAGNESIUM SULFATE 1GM/100ML 100 ML IV SCH (21:00)
--- NOTE | 2025-09-28 21:50 | DVHPN2 ---
Progress Note - Dictate Date Seen: Sep 28, 2025 Medical Necessity Reason Pt with a Central, PICC or Fol: No Subjective Patient was seen and evaluated in follow up in the ICU. Patient remains altered. She is on 2 LPM NC. 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 Renal US shows 1 cm right and 1.1 cm left renal stones. No hydronephrosis. vital signs Vital Sign Date Time Temp Pulse Resp B/P (MAP) Pulse Ox O2 Delivery O2 Flow Rate FiO2 09/28/25 07:30 20 100 Nasal Cannula* 2 28 09/28/25 06:30 97.2 88 97.2 09/28/25 06:15 134/72 (92) Total Intake and Output 09/27/25 09/27/25 09/28/25 15:00 23:00 07:00 Intake Total 2000 ml 711.25 ml Balance 2000 ml 711.25 ml medications Current Medications Medications Dose Ordered Sig/Kusum Route Start Time Stop Time Status Last Admin Dose Admin Ondansetron HCl 4 mg Q6HPRN PRN IV 09/27/25 21:15 Hold Heparin Sodium (Porcine) 5,000 units Q12HR SC 09/27/25 22:00 09/27/25 00:30 5,000 UNITS Docusate Sodium 100 mg BIDPRN PRN PO 09/27/25 21:15 Albuterol 2.5 mg Q4HPRN PRN NEB 09/27/25 21:15 Aspirin 81 mg DAILY PO 09/28/25 10:00 Atorvastatin Calcium 40 mg HS PO 09/27/25 22:00 Nitroglycerin 0.4 mg Q5MINP PRN SL 09/27/25 21:45 Norepinephrine Bitartrate 250 ml @ 3.75 mls/hr Q24H IV 09/27/25 23:30 09/28/25 02:30 3.75 MLS/HR Vancomycin HCl 0 ml @ 0 mls/hr PER PHARMACY IV 09/27/25 23:30 Cefepime HCl 50 ml @ 50 mls/hr Q24H IV 09/28/25 07:30 09/28/25 08:36 50 MLS/HR Prochlorperazine Edisylate 10 mg Q4HPRN PRN IV 09/28/25 09:15 Metoclopramide HCl 5 mg Q6HPRN PRN IV 09/28/25 09:30 Sodium Chloride 1,000 ml @ 100 mls/hr Q10H IV 09/28/25 09:30 09/28/25 11:35 100 MLS/HR Potassium Chloride 100 ml @ 50 mls/hr Q2H IV 09/28/25 09:30 09/28/25 15:29 09/28/25 11:35 50 MLS/HR objective GENERAL: Altered. EYES: PERRL, EOMI. Anicteric. HENT: Moist mucous membranes. LUNGS: Clear to auscultation bilaterally. CARDIOVASCULAR: Regular rate and rhythm. ABDOMEN: Soft, nontender and nondistended. EXTREMITIES: No edema. SKIN: Warm, dry. laboratory and microbiology Laboratory Tests 09/28/25 07:28 Test 09/28/25 07:28 Range/Units Serum Glucose 105 74-106 mg/dL Problem List Toxic metabolic encephalopathy. Elevated troponin. MONIK. UTI. Hypokalemia. Dehydration. HTN. Assessment/Plan Continued all current supportive medical care. Echocardiogram. Nitro SL. Aspirin. IV antibiotics as ordered. Vasopressors for hemodynamic support. Additional plan as per the hospital course. Critical care time of 45 minutes provided to include time spent evaluation of patient at bedside, when appropriate patient/family education for diagnosis, treatment plan, review of pertinent medical information and discussion of care with specialty providers and PCP. Plan discussed with: TALITA Cano MD Sep 28, 2025 11:58
[2025-09-28] MEDS: MAGNESIUM SULFATE 1GM/100ML 100 ML IV SCH (22:50)
[2025-09-29] VITALS (10 sets, daily range): BP systolic 139–157; BP diastolic 71–94; PULSE 72–84; RESP 14–18; TEMP 97.9–98.7; O2SAT 95–100
[2025-09-29 06:34] LABS: Hematocrit 33.1 % (36.0-46.0); Hemoglobin 10.9 g/dL (12.2-16.2); Mean Corpuscular Hemoglobin 29.5 pg (28.0-32.0); Mean Corpuscular Volume 89.0 fL (80.0-100.0); Nucleated Red Blood Cells % 0.1 %
[2025-09-29 06:44] LABS: Chloride 102 mmol/L (98-107); Sodium 139 mmol/L (136-145)
[2025-09-29 06:45] LABS: Anion Gap 11 (5-15); Carbon Dioxide 26 mmol/L (20-31)
[2025-09-29 06:47] LABS: Calcium 8.4 mg/dL (8.7-10.4); Potassium 3.0 mmol/L (3.5-5.1)
[2025-09-29 06:50] LABS: BUN/Creatinine Ratio 19.8 (10.0-20.0); Blood Urea Nitrogen 17 mg/dL (9-23); Glucose 79 mg/dL (74-106)
--- NOTE | 2025-09-29 07:13 | DVHPN2 ---
Progress Note Date Seen: Sep 29, 2025 Medical Necessity Reason Pt with a Central, PICC or Fol: No Subjective Patient reports: Feels better Review of Systems: Not Done Objective vital signs Vital Sign Date Time Temp Pulse Resp B/P (MAP) Pulse Ox O2 Delivery O2 Flow Rate FiO2 09/29/25 05:00 98.3 84 18 147/93 (111) 95 98.3 09/28/25 21:32 Nasal Cannula* 1 24 Total Intake and Output 09/28/25 09/28/25 09/29/25 15:00 23:00 07:00 Intake Total 2753.75 ml 600 ml 300 ml Output Total 2000 ml 1600 ml Balance 2753.75 ml -1400 ml -1300 ml medications Current Medications Medications Dose Ordered Sig/Kusum Route Start Time Stop Time Status Last Admin Dose Admin Ondansetron HCl 4 mg Q6HPRN PRN IV 09/27/25 21:15 Hold Heparin Sodium (Porcine) 5,000 units Q12HR SC 09/27/25 22:00 09/28/25 22:41 5,000 UNITS Docusate Sodium 100 mg BIDPRN PRN PO 09/27/25 21:15 Albuterol 2.5 mg Q4HPRN PRN NEB 09/27/25 21:15 Aspirin 81 mg DAILY PO 09/28/25 10:00 Atorvastatin Calcium 40 mg HS PO 09/27/25 22:00 09/28/25 22:58 40 MG Nitroglycerin 0.4 mg Q5MINP PRN SL 09/27/25 21:45 Norepinephrine Bitartrate 250 ml @ 3.75 mls/hr Q24H IV 09/27/25 23:30 09/28/25 02:30 3.75 MLS/HR Vancomycin HCl 0 ml @ 0 mls/hr PER PHARMACY IV 09/27/25 23:30 Cefepime HCl 50 ml @ 50 mls/hr Q24H IV 09/28/25 07:30 09/28/25 08:36 50 MLS/HR Prochlorperazine Edisylate 10 mg Q4HPRN PRN IV 09/28/25 09:15 Metoclopramide HCl 5 mg Q6HPRN PRN IV 09/28/25 09:30 Sodium Chloride 1,000 ml @ 100 mls/hr Q10H IV 09/28/25 09:30 09/29/25 05:30 100 MLS/HR Examination: GENERAL:Normal, LUNGS:Normal, CVS:Normal, ABDOMEN:Normal laboratory and microbiology Laboratory Tests 09/29/25 05:58 Test 09/29/25 05:58 Range/Units Serum Glucose 79 74-106 mg/dL Problem List/Assessment/Plan Problem List/Assessment/Plan 1) Metabolic encephalopathy 2) UTI 3) MONIK, resolved 4) Hypokalemia 5) Elevated troponin, demand 6) HTN 7) HLD 8) Dementia plan; downgraded to tele, off pressors, BCx negative, on broad spectrum IV Abx, replete K today as potassium is 3.0, continue fluid hydration, ST/PT eval, dc planning to likely SNF after discussion with daughter, daily labs, will follow along Plan discussed with: Other (n) DANIEL ALY MD Sep 29, 2025 07:13
[2025-09-29] MEDS: POTASSIUM CHLORIDE 60 MEQ, LIDOCAINE 1% (LOCAL ANESTH.) 6 ML in SODIUM CHL 0.9% 500 ML IV ONE (08:53)
--- NOTE | 2025-09-29 10:16 | ECG ---
[facility] Test Date: 2025-09-27 Test Time: 20:24:46 Pat Name: CRYSTAL DEWEY Department: ED Room: 0248T A Gender: F Dial Mounter: ROB : 1940 Requested By: JAYNA JESUS Order Number: [id number] Reading MD: Juno Phipps Measurements Intervals [place] Rate: 44 P: 22 ME: 161 QRS: -62 QRSD: 112 T: 85 QT: 450 QTc: 385 Interpretive Statements Sinus bradycardia Incomplete left bundle branch block LVH with secondary repolarization abnormality Electronically Signed On 09-29-2025 10:33:17 PST by Juno Phipps Please click the below link to view image of tracing.
--- NOTE | 2025-09-29 12:12 | DVHPN2 ---
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 Reported improvement since admission, reported no new complaints at this time. Objective vital signs Vital Sign Date Time Temp Pulse Resp B/P (MAP) Pulse Ox O2 Delivery O2 Flow Rate FiO2 09/29/25 09:00 98.3 77 18 140/86 (104) 97 98.3 09/29/25 08:00 Nasal Cannula* 2 28 Total Intake and Output 09/28/25 09/28/25 09/29/25 15:00 23:00 07:00 Intake Total 2753.75 ml 600 ml 300 ml Output Total 2000 ml 1600 ml Balance 2753.75 ml -1400 ml -1300 ml medications Current Medications Medications Dose Ordered Sig/Kusum Route Start Time Stop Time Status Last Admin Dose Admin Ondansetron HCl 4 mg Q6HPRN PRN IV 09/27/25 21:15 Hold Heparin Sodium (Porcine) 5,000 units Q12HR SC 09/27/25 22:00 09/29/25 11:10 5,000 UNITS Docusate Sodium 100 mg BIDPRN PRN PO 09/27/25 21:15 Albuterol 2.5 mg Q4HPRN PRN NEB 09/27/25 21:15 Aspirin 81 mg DAILY PO 09/28/25 10:00 09/29/25 11:19 81 MG Atorvastatin Calcium 40 mg HS PO 09/27/25 22:00 09/28/25 22:58 40 MG Nitroglycerin 0.4 mg Q5MINP PRN SL 09/27/25 21:45 Vancomycin HCl 0 ml @ 0 mls/hr PER PHARMACY IV 09/27/25 23:30 Cefepime HCl 50 ml @ 50 mls/hr Q24H IV 09/28/25 07:30 09/29/25 08:39 50 MLS/HR Prochlorperazine Edisylate 10 mg Q4HPRN PRN IV 09/28/25 09:15 Metoclopramide HCl 5 mg Q6HPRN PRN IV 09/28/25 09:30 Sodium Chloride 1,000 ml @ 100 mls/hr Q10H IV 09/28/25 09:30 09/29/25 09:02 100 MLS/HR Examination Skin - Patients skin is warm and dry. HEENT - normocephalic, atraumatic, moist mucous membranes, no pallor or icterus Pulmonary - B/L rales more in the lower lobes, decreased breath sounds in the left lower. cardiovascular - regular S1,S2 heard, S4 heard, no murmurs heard. GI - soft, nontender abdomen. Bowel sounds normoactive Extremities: mild bilateral lower extremity edema laboratory and microbiology Laboratory Tests 09/29/25 05:58 Test 09/29/25 05:58 Range/Units Serum Glucose 79 74-106 mg/dL Microbiology Date/Time Source Procedure Growth Status 09/27/25 17:29 Blood Blood Culture - Preliminary NO GROWTH AFTER 24 HOURS OF INCUBATION. Resulted Labs and/or images reviewed: Labs reviewed by me, Image(s) reviewed by me Problem List/Assessment/Plan Problem List/Assessment/Plan MONIK likely hemodynamically mediated unknown baseline-improved Questionable sepsis Acute toxic/ metabolic encephalopathy NSTEMI likely type 2 Acute complicated cystitis Hypokalemia Recommendations Monitor lab Assess fluid status daily Blood pressure management Avoid nephrotoxic agents IV fluid Rest of management as per primary team Case discussed with Dr. Young. We will sign off, thank you for allowing us to participate inpatient care. Please call for any queries. Plan discussed with: Patient, Other (RN) EN PORTER RESIDENT Sep 29, 2025 12:12
--- NOTE | 2025-09-29 13:57 | DVHPN2 ---
Progress Note - Dictate Date Seen: Sep 29, 2025 Medical Necessity Reason Pt with a Central, PICC or Fol: No Subjective Patient was seen and evaluated in follow up.Patient is downgraded to telemetry. She is on 2 LPM NC. Patient denies any complaints, reports she is feeling better. K 3.0, CA 8.4. Telemetry reviewed. vital signs Vital Sign Date Time Temp Pulse Resp B/P (MAP) Pulse Ox O2 Delivery O2 Flow Rate FiO2 09/29/25 09:00 98.3 77 18 140/86 (104) 97 98.3 09/29/25 08:00 Nasal Cannula* 2 28 Total Intake and Output 09/28/25 09/28/25 09/29/25 15:00 23:00 07:00 Intake Total 2753.75 ml 600 ml 300 ml Output Total 2000 ml 1600 ml Balance 2753.75 ml -1400 ml -1300 ml medications Current Medications Medications Dose Ordered Sig/Kusum Route Start Time Stop Time Status Last Admin Dose Admin Ondansetron HCl 4 mg Q6HPRN PRN IV 09/27/25 21:15 Hold Heparin Sodium (Porcine) 5,000 units Q12HR SC 09/27/25 22:00 09/29/25 11:10 5,000 UNITS Docusate Sodium 100 mg BIDPRN PRN PO 09/27/25 21:15 Albuterol 2.5 mg Q4HPRN PRN NEB 09/27/25 21:15 Aspirin 81 mg DAILY PO 09/28/25 10:00 09/29/25 11:19 81 MG Atorvastatin Calcium 40 mg HS PO 09/27/25 22:00 09/28/25 22:58 40 MG Nitroglycerin 0.4 mg Q5MINP PRN SL 09/27/25 21:45 Vancomycin HCl 0 ml @ 0 mls/hr PER PHARMACY IV 09/27/25 23:30 Cefepime HCl 50 ml @ 50 mls/hr Q24H IV 09/28/25 07:30 09/29/25 08:39 50 MLS/HR Prochlorperazine Edisylate 10 mg Q4HPRN PRN IV 09/28/25 09:15 Metoclopramide HCl 5 mg Q6HPRN PRN IV 09/28/25 09:30 Sodium Chloride 1,000 ml @ 100 mls/hr Q10H IV 09/28/25 09:30 09/29/25 09:02 100 MLS/HR objective GENERAL: Altered. EYES: PERRL, EOMI. Anicteric. HENT: Moist mucous membranes. LUNGS: Clear to auscultation bilaterally. CARDIOVASCULAR: Regular rate and rhythm. ABDOMEN: Soft, nontender and nondistended. EXTREMITIES: No edema. SKIN: Warm, dry. laboratory and microbiology Laboratory Tests 09/29/25 05:58 Test 09/29/25 05:58 Range/Units Serum Glucose 79 74-106 mg/dL Problem List Toxic metabolic encephalopathy. Elevated troponin. MONIK. UTI. Hypokalemia. Dehydration. HTN. Assessment/Plan Continued all current supportive medical care. Aspirin, Lipitor. IV antibiotics as ordered. Additional plan as per the hospital course. Dietary Evaluation Review Comments: Nutrition Recommendation: 1) Laith 1 pk BID, MVI w/ minerals 1 tab daily, VitC 500mg BID, Zinc sulfate 220mg BID x 10 days 2) Ensure high protein 240ml BID 3) Monitor PO intake, lab values, weight trend, and I/O Expected Outcomes/Goals: Wound to improve FU 3-5 days Plan discussed with: Patient TALITA CRAWFORD MD Sep 29, 2025 12:29
[2025-09-29] MEDS ORDERED: VANCOMYCIN 500mg/100mL 100 ML IV ONE (16:42)
[2025-09-29] MEDS: VANCOMYCIN 500mg/100mL 100 ML IV SCH (17:32)
[2025-09-29] MEDS: CEFEPIME 1GM/50ML 50 ML IV SCH (22:43)
[2025-09-30] VITALS (10 sets, daily range): BP systolic 143–158; BP diastolic 71–94; PULSE 53–103; RESP 17–20; TEMP 97.9–99.1; O2SAT 96–100
[2025-09-30] MEDS ORDERED: VANCOMYCIN 500mg/100mL 100 ML IV ONE (06:14)
--- NOTE | 2025-09-30 07:38 | DVHDS2 ---
New Physician D'charge PN Admitting Diagnosis Admitting Diagnosis aloc Discharge Diagnosis uti septic shock, resolved monik, resolved Operations or Procedures none Reason(s) For Hospitalization Surgery Hospital Course 85 F who was found down at home after family did not hear from her they called the motorcycle subassembly repairer who found the patient on the floor at home. EMS was called and patient was BIBA to the hospital. She was noted to be confused and slow to respond. CT head was negative for acute findings and CXR was clear. CT abdomen revealed no acute intraabdominal findings. Renal US showed no obstruction, Her labs CBC showed a nml WBC however she had a left shift with 89% neutrophils. Her chemistry revealed MONIK with Cr 2.1 and lactic acid was 2.3 on admission. Her UA revealed UTI and she was admitted and started on broad spectrum IV Abx along with aggressive IV fluid hydration and she was pancultured. At one point she required levophed for BP support due to septic shock however the levophed was eventually weaned off and patient was downgraded out [facility]. Her Cr normalized with IV fluid hydration to 0.8 and her UCx and BCx returned to be negative. She is now awake and alert. Hemodynamically her vital signs are stable and she is afebrile. She is profoundly weak and will need SNF for rehab. This was discussed with the patients family and they agree for SNF placement as patient is too weak to care for herself at home. Patient to be discharged to SNF today via [facility] and she will complete PO course of levaquin x 7 days for UTI at SNF. Treatment Plan Discharge Condition of Discharge Good Disposition Custodial Facility Discharge Instructions Diet: Cardiac 2g Na,low cholest Activity: No Restrictions, As Tolerated Medications: see med sheet Follow Up Care Follow Up/Referral: pcp Discharge Statement: "Patient was advised to return to the ER or call 911 if any headaches, dizziness, shortness of breath, chest pain, abdominal pain, bleeding, fevers, or worsening of medical condition. Patient was counseled about treatment plan, medications, possible side effects, patientverbalized understanding. All questions were answered to the best of my ability. This discharge took greater then 30 minutes in planning, reviewing documentation, counseling the patient, and discussing with other team members." DANIEL ALY MD Sep 30, 2025 07:37
[2025-09-30 07:40] LABS: Hematocrit 31.0 % (36.0-46.0); Hemoglobin 10.3 g/dL (12.2-16.2); Mean Corpuscular Hemoglobin 29.1 pg (28.0-32.0); Mean Corpuscular Volume 87.8 fL (80.0-100.0); Nucleated Red Blood Cells % 0.0 %
[2025-09-30 07:55] LABS: Anion Gap 17 (5-15); Carbon Dioxide 23 mmol/L (20-31)
[2025-09-30 08:01] LABS: BUN/Creatinine Ratio 20.6 (10.0-20.0); Blood Urea Nitrogen 13 mg/dL (9-23)
[2025-09-30 08:05] LABS: Calcium 8.1 mg/dL (8.7-10.4); Chloride 94 mmol/L (98-107); Glucose 55 mg/dL (74-106); Potassium 3.4 mmol/L (3.5-5.1); Sodium 134 mmol/L (136-145)
[2025-09-30] MEDS: DOCUSATE SOD 100 MG CAP PO PRN (14:08)
--- NOTE | 2025-09-30 17:50 | ECG ---
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
[2025-09-30] MEDS: SOD CHL 0.45% 1,000 ML IV SCH (18:13)
[2025-09-30] MEDS: POTASSIUM CHL 20MEQ/100ML 100 ML IV SCH (18:27)
--- NOTE | 2025-09-30 21:12 | DVHPN2 ---
Progress Note - Dictate Date Seen: Sep 30, 2025 Medical Necessity Reason Pt with a Central, PICC or Fol: No Subjective Patient was seen and evaluated in follow up. Patient resting in bed. Sitter is at bedside. Patient's daughter Julia is requesting a swallow eval prior to discharge to SNF. K 3.4, CL 94, GLUC 55, CA 8.1. Telemetry reviewed. vital signs Vital Sign Date Time Temp Pulse Resp B/P (MAP) Pulse Ox O2 Delivery O2 Flow Rate FiO2 09/30/25 09:00 98.8 77 17 143/90 (107) 100 98.8 09/30/25 07:26 Nasal Cannula* 1 24 Total Intake and Output 09/29/25 09/29/25 09/30/25 15:00 23:00 07:00 Intake Total 850 ml 1000 ml Output Total 2000 ml 1400 ml Balance 850 ml -1000 ml -1400 ml medications Current Medications Medications Dose Ordered Sig/Kusum Route Start Time Stop Time Status Last Admin Dose Admin Ondansetron HCl 4 mg Q6HPRN PRN IV 09/27/25 21:15 Hold Heparin Sodium (Porcine) 5,000 units Q12HR SC 09/27/25 22:00 09/30/25 10:59 5,000 UNITS Docusate Sodium 100 mg BIDPRN PRN PO 09/27/25 21:15 Albuterol 2.5 mg Q4HPRN PRN NEB 09/27/25 21:15 Aspirin 81 mg DAILY PO 09/28/25 10:00 09/29/25 11:19 81 MG Atorvastatin Calcium 40 mg HS PO 09/27/25 22:00 09/28/25 22:58 40 MG Nitroglycerin 0.4 mg Q5MINP PRN SL 09/27/25 21:45 Vancomycin HCl 0 ml @ 0 mls/hr PER PHARMACY IV 09/27/25 23:30 Prochlorperazine Edisylate 10 mg Q4HPRN PRN IV 09/28/25 09:15 Metoclopramide HCl 5 mg Q6HPRN PRN IV 09/28/25 09:30 Sodium Chloride 1,000 ml @ 100 mls/hr Q10H IV 09/28/25 09:30 09/30/25 10:57 100 MLS/HR Vancomycin HCl 100 ml @ 200 mls/hr Q15H IV 09/29/25 16:00 09/30/25 06:20 200 MLS/HR Cefepime HCl 50 ml @ 50 mls/hr Q12HR IV 09/29/25 22:00 09/30/25 10:56 50 MLS/HR objective GENERAL: Altered. EYES: PERRL, EOMI. Anicteric. HENT: Moist mucous membranes. LUNGS: Clear to auscultation bilaterally. CARDIOVASCULAR: Regular rate and rhythm. ABDOMEN: Soft, nontender and nondistended. EXTREMITIES: No edema. SKIN: Warm, dry. laboratory and microbiology Laboratory Tests 09/30/25 06:43 Test 09/30/25 06:43 Range/Units Serum Glucose 55 L 74-106 mg/dL Problem List Toxic metabolic encephalopathy. Elevated troponin. MONIK. UTI. Hypokalemia. Dehydration. HTN. Assessment/Plan Continued all current supportive medical care. Nitro SL. Nebulized breathing treatments. IV antibiotics as ordered. Additional plan as per the hospital course. Dietary Evaluation Review Comments: Nutrition Recommendation: 1) Laith 1 pk BID, MVI w/ minerals 1 tab daily, VitC 500mg BID, Zinc sulfate 220mg BID x 10 days 2) Ensure high protein 240ml BID 3) Monitor PO intake, lab values, weight trend, and I/O Expected Outcomes/Goals: Wound to improve FU 3-5 days Plan discussed with: Patient TALITA CRAWFORD MD Sep 30, 2025 11:29
[2025-10-01 00:33] VITALS: O2SAT 99
[2025-10-01 00:52] VITALS: BP 151/88; PULSE 52; RESP 18; TEMP 98; O2SAT 99
[2025-10-01 05:00] VITALS: BP 132/91; PULSE 53; RESP 18; TEMP 98.4; O2SAT 98
[2025-10-01 07:40] LABS: Hematocrit 29.7 % (36.0-46.0); Hemoglobin 10.2 g/dL (12.2-16.2); Mean Corpuscular Hemoglobin 29.6 pg (28.0-32.0); Mean Corpuscular Volume 86.1 fL (80.0-100.0); Nucleated Red Blood Cells % 0.4 %
[2025-10-01 07:53] LABS: Anion Gap 10 (5-15); Carbon Dioxide 30 mmol/L (20-31)
[2025-10-01 07:54] LABS: Calcium 8.9 mg/dL (8.7-10.4)
[2025-10-01 07:56] LABS: Chloride 96 mmol/L (98-107); Potassium 3.3 mmol/L (3.5-5.1); Sodium 136 mmol/L (136-145)
[2025-10-01 07:59] LABS: BUN/Creatinine Ratio 19.0 (10.0-20.0); Blood Urea Nitrogen 12 mg/dL (9-23); Glucose 89 mg/dL (74-106)
[2025-10-01] MEDS: POTASSIUM EFFERVESENT TAB 25 MEQ GT ONE (08:30)
[2025-10-01 08:34] VITALS: BP 149/85; PULSE 79; RESP 17; TEMP 97.9; O2SAT 98
[2025-10-01 12:40] VITALS: BP 149/89; PULSE 89; RESP 17; TEMP 98; O2SAT 100
[2025-10-01] MEDS ORDERED: POTASSIUM EFFERVESENT TAB 25 MEQ ONE ×2 (13:11→15:32)
[2025-10-01 15:07] VITALS: BP 149/85; PULSE 79; RESP 17; TEMP 36.7; O2SAT 98
[2025-10-01] MEDS: POTASSIUM EFFERVESENT TAB 25 MEQ PO ONE (15:15)
--- NOTE | 2025-10-01 18:32 | DVHPN2 ---
Progress Note - Dictate Date Seen: Oct 01, 2025 Medical Necessity Reason Pt with a Central, PICC or Fol: No Subjective Patient was seen and evaluated in follow up. Patient has no new complaints at this time. Patient denies any cardiac symptoms. Patient is cardiac stable for discharge. Telemetry reviewed. vital signs Vital Sign Date Time Temp Pulse Resp B/P (MAP) Pulse Ox O2 Delivery O2 Flow Rate FiO2 10/01/25 12:40 98.0 89 17 149/89 (109) 100 98.0 10/01/25 00:33 Nasal Cannula* 1 24 Total Intake and Output 09/30/25 09/30/25 10/01/25 15:00 23:00 07:00 Intake Total 50 ml 480 ml 400 ml Output Total 400 ml 1000 ml Balance 50 ml 80 ml -600 ml medications Current Medications Medications Dose Ordered Sig/Kusum Route Start Time Stop Time Status Last Admin Dose Admin Ondansetron HCl 4 mg Q6HPRN PRN IV 09/27/25 21:15 Hold Heparin Sodium (Porcine) 5,000 units Q12HR SC 09/27/25 22:00 10/01/25 13:18 5,000 UNITS Docusate Sodium 100 mg BIDPRN PRN PO 09/27/25 21:15 09/30/25 14:08 100 MG Albuterol 2.5 mg Q4HPRN PRN NEB 09/27/25 21:15 Aspirin 81 mg DAILY PO 09/28/25 10:00 09/29/25 11:19 81 MG Atorvastatin Calcium 40 mg HS PO 09/27/25 22:00 09/30/25 22:59 40 MG Nitroglycerin 0.4 mg Q5MINP PRN SL 09/27/25 21:45 Vancomycin HCl 0 ml @ 0 mls/hr PER PHARMACY IV 09/27/25 23:30 Prochlorperazine Edisylate 10 mg Q4HPRN PRN IV 09/28/25 09:15 Metoclopramide HCl 5 mg Q6HPRN PRN IV 09/28/25 09:30 Vancomycin HCl 100 ml @ 200 mls/hr Q15H IV 09/29/25 16:00 10/01/25 13:05 200 MLS/HR Cefepime HCl 50 ml @ 50 mls/hr Q12HR IV 09/29/25 22:00 10/01/25 13:04 50 MLS/HR Sodium Chloride 1,000 ml @ 50 mls/hr Q20H IV 09/30/25 17:00 10/01/25 13:18 50 MLS/HR objective GENERAL: Altered. EYES: PERRL, EOMI. Anicteric. HENT: Moist mucous membranes. LUNGS: Clear to auscultation bilaterally. CARDIOVASCULAR: Regular rate and rhythm. ABDOMEN: Soft, nontender and nondistended. EXTREMITIES: No edema. SKIN: Warm, dry. laboratory and microbiology Laboratory Tests 10/01/25 06:26 10/01/25 06:24 Test 10/01/25 06:24 Range/Units Serum Glucose 89 74-106 mg/dL Problem List Toxic metabolic encephalopathy. Elevated troponin. MONIK. UTI. Hypokalemia. Dehydration. HTN. Assessment/Plan Continued all current supportive medical care. Nitro SL. IV antibiotics as ordered. Additional plan as per the hospital course. Dietary Evaluation Review Comments: Nutrition Recommendation: 1) Laith 1 pk BID, MVI w/ minerals 1 tab daily, VitC 500mg BID, Zinc sulfate 220mg BID x 10 days 2) Ensure high protein 240ml BID 3) Monitor PO intake, lab values, weight trend, and I/O Expected Outcomes/Goals: Wound to improve FU 3-5 days Plan discussed with: Patient TALITA CRAWFORD MD Oct 01, 2025 13:31
--- NOTE | 2025-10-02 23:39 | DVHSR ---
APPROVED REPORT EXAM: Two-dimensional and M-mode echocardiogram with Doppler and color Doppler. Blood Pressure: 134/72 mmHg INDICATION elevated trops, evalaute any wall abnormalities RISK FACTORS Height: 5'3, Weight: 126 DIMENSIONS LVDd 4.1 (3.8-5.7cm) LA (2D) 3.5 (1.9-4.0cm) Aortic Root (2.0-3.7cm) LVDs 2.7 (2.5-4.0cm) LA (MM) (1.9-4.0cm) Aortic Cusp Exc (1.5-2.0cm) EF (%) 60.0 (55-70%) Rt. Atrium 3.6 (1.9-4.0cm) Asc. Aorta cm IVSd 0.8 (0.7-1.1cm) RV (D) (1.8-2.4cm) PWd 0.6 (0.7-1.1cm) Mitral Valve Mitral Mitral Stenosis E wave 0.66m/s MV Mean GR. mmHg A wave 1.23m/s MV Peak GR. 112mmHg E/A ratio 0.5 2D MVA cm2 DECEL Time 224ms PRESS 1/2 Time ms Aortic Valve Aortic Valve Aortic Stenosis V1 1.10m/s AO Mean GR. mmHg V2 1.19m/s AO Peak GR. 6mmHg LVOT Diameter 1.9 (1.8-2.4cm) Doppler LEAH 2.62cm2 Pulmonic Valve V2 0.97m/s Tricuspid Valve TR Velocity 2.57m/s RVSP 27mmHg Other Information Quality : Technically Limited Rhythm : Technically limited study due to pt sitting up and aloc unable to follow commands Conclusion NORMAL LV EF IS 65% MILD LVH AND MILD LV DIASTOLIC DYSFUNCTION NORMAL VALVES NO EFFUSION
== END 2025-10-01 14:53 | DRG 871 ==
LOC: EDBD 14:54 → ER 14:54 → OVERFLOW 21:33 → ICU CENTRL 21:35 → TELE-EAST 21:35 → ICU CENTRL 09-28 04:50 → TELE-EAST 09-28 21:27 → OBSVTOIN 09-29 11:01
PROVIDERS: ADMIT Hospitalist; ATTEND Hospitalist
PROC: 05HN33Z Insertion of Infusion Device into Left Internal Jugular Vein, Percutaneous Approach (ICD-10-PCS; principal; 2025-09-27)
DX: A41.9 Sepsis, unspecified organism (principal); G92.8 Other toxic encephalopathy; R65.21 Severe sepsis with septic shock; N17.9 Acute kidney failure, unspecified; N39.0 Urinary tract infection, site not specified; F03.90 Unspecified dementia, unspecified severity, without behavioral disturbance, psychotic disturbance, mood disturbance, and anxiety; I10 Essential (primary) hypertension; E78.5 Hyperlipidemia, unspecified; E86.0 Dehydration; E87.6 Hypokalemia; K59.00 Constipation, unspecified; N20.0 Calculus of kidney; Z90.710 Acquired absence of both cervix and uterus; Z90.49 Acquired absence of other specified parts of digestive tract; Z88.0 Allergy status to penicillin; Z88.5 Allergy status to narcotic agent
CPT/HCPCS: 36415; 36600; 70450; 71045; 74176; 76604; 76775; 80048; 80053; 80202; 80307; 81001; 82043; 82140; 82550; 82570; 82805; 82962; 83605; 83735; 83880; 83970; 84100; 84156; 84300; 84436; 84443; 84480; 84484; 85025; 87040; 87081; 87086; 93005; 93306; 96361; 96365; 96367; 97110; 97116; 97163; 97530; G0378; J2003; J2405; J3480